=== PATIENT | female | born 1985 | race Caucasian/White ===

== ENCOUNTER 2018-09-16 07:28 | Day surgery (SDC) | payer MEDICAID ==
[2018-09-15 09:38] LABS: BASOPHILS # (AUTO) 0.1 K/uL (0.00-0.22); BASOPHILS % (AUTO) 0.6 % (0.0-2.0); EOSINOPHILS # (AUTO) 0.4 K/uL (0-0.4); EOSINOPHILS % (AUTO) 4.3 % (0.0-4.0); HEMATOCRIT 41.3 % (36-48); HEMOGLOBIN 13.6 g/dL (12.0-16.0); LYMPHOCYTES # (AUTO) 2.6 K/uL (2.5-16.5); LYMPHOCYTES % (AUTO) 26.7 % (20.5-51.1); MEAN CORPUSCULAR HEMOGLOBIN 28 pg (27-31); MEAN CORPUSCULAR HGB CONC 33 g/dL (33-37); MEAN CORPUSCULAR VOLUME 84.9 fL (80-94); MONOCYTES # (AUTO) 0.6 K/uL (0.8-1.0); MONOCYTES % (AUTO) 6.1 % (1.7-9.3); NEUTROPHILS # (AUTO) 6.2 K/uL (1.8-7.7); NEUTROPHILS % (AUTO) 62.3 % (42.2-75.2); PLATELET COUNT (AUTO) 257 K/uL (140-450); RED BLOOD CELL COUNT(AUTO) 4.86 MIL/uL (4.20-5.40); RED CELL DISTRIBUTION WIDTH 13.3 % (11.6-13.7); WHITE BLOOD COUNT (AUTO) 9.9 K/uL (4.8-10.8)
[2018-09-15 09:56] LABS: ALBUMIN 3.5 g/dL (3.4-5.0); ANION GAP 12.7 (8-16); CREATININE 0.8 mg/dL (0.6-1.3); POTASSIUM 3.7 mmol/L (3.5-5.1); TOTAL BILIRUBIN 0.3 mg/dL (0.0-1.0)
[~2018-09-16] VITALS: Ht 170.2 cm; Wt 117.9 kg
[2018-09-16] MEDS ORDERED: BEN10 PO (07:54)
[2018-09-16] MEDS ORDERED: CEFAZOLIN SODIUM 1 GM/D5W PM 50 ML IV ONE (08:10)
[2018-09-16] MEDS ORDERED: BUPIVACAINE-MPF/EPI 0.25% 30 ML VIAL INJ ONE (09:31)
[2018-09-16] MEDS ORDERED: MIDAZOLAM 2 MG/2 ML VIAL ONE (09:33)
[2018-09-16] MEDS ORDERED: fentaNYL 0.05 MG/ML VIAL ONE (09:33)
[2018-09-16] MEDS ORDERED: ONDANSETRON 4 MG/2 ML VIAL IVP PRN (09:45)
[2018-09-16] MEDS ORDERED: HYDROmorphone 1 MG/ML AMP IVP PRN ×2 (09:45→10:50)
[2018-09-16] MEDS ORDERED: NACL 0.9% 1,000 ML IV SCH (10:46)
[2018-09-16] MEDS ORDERED: HYDROmorphone PFS 2 MG/ML SYR ONE (10:48)
[2018-09-16] MEDS ORDERED: HYDROcodone/APAP 5/325 MG 1 TAB TAB PO PRN (10:50)
[2018-09-16] MEDS ORDERED: ACETAMINOPHEN 325 MG TAB PO PRN (10:50)
[2018-09-16] MEDS: MORPHINE SULFATE 4 MG/ML SYR IV PRN ×2 (11:50→11:55)
[2018-09-16] MEDS ORDERED: ONDANSETRON 4 MG/2 ML VIAL IV PRN (14:00)
== END 2018-09-16 13:04 | disposition home or self-care (01) ==
LOC: MDS 07:28 → MMU 07:28 → MDS 13:04
PROVIDERS: ATTEND Surgery
DX: K80.10 Calculus of gallbladder with chronic cholecystitis without obstruction (principal); K21.9 Gastro-esophageal reflux disease without esophagitis; F12.90 Cannabis use, unspecified, uncomplicated; E66.01 Morbid (severe) obesity due to excess calories; Z68.41 Body mass index [BMI] 40.0-44.9, adult; Z98.890 Other specified postprocedural states; Z79.1 Long term (current) use of non-steroidal anti-inflammatories (NSAID); Z79.899 Other long term (current) drug therapy; Z72.89 Other problems related to lifestyle
CPT/HCPCS: 36415; 71045; 80053; 81025; 82374; 85025; 86886; 86900; 86901; 88304; J0690; J1170; J2250; J2270; J2405; J3010; J3490; J7030; J7120